=== PATIENT | female | born 1980 | race Caucasian/White ===

== ENCOUNTER 2016-07-12 20:13 | Emergency (ER) | payer BC ==
[~2016-07-12] VITALS: Ht 175.2 cm; Wt 99.8 kg
[~2016-07-12 20:13] MED LIST: AMOXICILLIN500 M2 PO; AMOXICILLIN500 MG PO; ANAPROX DS550 MG PO; AUGMENTIN 875 M1 TAB PO; BACTRIM DS 8001 TA1 PO; BENZONATATE100 M1 PO; CATAFLAM50 MG PO; CIPRO250 MG PO; CIPRODEX 0.3%-7.5 ML OT; CIPROFLOXACIN500 MG PO; CLARITIN10 MG PO; DIFLUCAN150 MG PO; FIORICET 325 MG1 TAB PO; HYDROCODONE BIT1 T11 PO; MOTRIN800 MG PO; Motrin,Rufen800 MG PO; NKHM; PREDNISONE20 M1 PO; ROBAXIN750 MG PO; TRAMADOL HCL50 MG PO; ULTRAM50 MG PO; VICO75300 PO; VICODIN 500 MG-1 TAB PO; VITAMINS; Zofran4 MG PO
[2016-07-12 20:18] VITALS: BP 160/116
[2016-07-12 21:01] LABS: BILIRUBIN NEGATIVE (NEGATIVE); BLOOD 2+ (NEGATIVE); CLARITY SL CLOUDY (CLEAR); COLOR YELLOW (YELLOW); GLUCOSE NEGATIVE (NEGATIVE); KETONE NEGATIVE (NEGATIVE); LEUKO ESTERASE NEGATIVE (NEGATIVE); NITRITE NEGATIVE (NEGATIVE); PROTEIN NEGATIVE (NEGATIVE); SPECIFIC GRAVITY 1.025 (1.005-1.030)
[2016-07-12 21:02] LABS: URINE REFLEX COMMENT YES (NO)
[2016-07-12 21:05] LABS: BASO # 0.1 10*3/uL (0.0-0.1); BASO % 0.5 % (0.0-1.0); EOS # 0.2 10*3/uL (0.0-0.4); EOS % 1.9 % (1.0-4.0); HEMOGLOBIN 13.4 g/dl (12.0-16.0); IG # 0.1 10*3/uL (0.0-0.1); LYMPH # 2.5 10*3/uL (1.3-4.4); MEAN CELL VOLUME 90.9 fl (81.0-99.0); MEAN CORPUSCULAR HGB 30.5 pg (27.0-31.0); MEAN CORPUSCULAR HGB CONC 33.5 g/dl (33.0-37.0); MEAN PLATELET VOLUME 10.7 fl (9.6-12.3); MONO # 0.7 10*3/uL (0.1-1.0); MONO % 5.5 % (3.0-9.0); NEUT # 8.8 10*3/uL (2.3-7.9); NEUT % 71.6 % (47.0-73.0); PLATELET COUNT AUTOMATED 268 10*3/uL (130-400); WHITE BLOOD COUNT 12.3 10*3/uL (4.8-10.8)
[2016-07-12 21:08] LABS: BACTERIA 1+
[2016-07-12 21:09] LABS: WBC 0-2 wbc/hpf (0-5)
[2016-07-12 21:20] LABS: ALBUMIN 3.7 gm/dl (3.1-4.5); ALKALINE PHOSPHATASE 81 U/L (45-117); BILIRUBIN, TOTAL 0.2 mg/dl (0.2-1.0); BUN 16 mg/dl (7-24); CARBON DIOXIDE 27 mmol/L (21-32); CHLORIDE 110 mmol/L (98-107); EST GLOM FILT AFRICAN AMERICAN > 60 ml/min; GLUCOSE 111 mg/dL (65-99); POTASSIUM 4.3 mmol/L (3.5-5.1); SGOT/AST 20 IU/L (3-35); SGPT/ALT 26 U/L (12-78); SODIUM 145 mmol/L (136-145); TOTAL PROTEIN 7.3 gm/dL (6.4-8.2)
[2016-07-12] MEDS ORDERED: HYDROCODONE BIT1 T11 PO (23:10)
[2016-07-12] MEDS ORDERED: Motrin,Rufen800 MG PO (23:10)
== END 2016-07-12 23:43 | disposition home or self-care (01) ==
LOC: ED 20:13
PROVIDERS: Physician Assistant
DX: R31.9 Hematuria, unspecified (principal); R10.30 Lower abdominal pain, unspecified; Z90.710 Acquired absence of both cervix and uterus; Z98.51 Tubal ligation status; Z98.890 Other specified postprocedural states; Z79.899 Other long term (current) drug therapy

== ENCOUNTER 2016-12-31 17:39 | Emergency (ER) | payer OTHER ==
[~2016-12-31] VITALS: Ht 175.2 cm; Wt 99.8 kg
[2016-12-31 17:48] VITALS: BP 134/77
[2016-12-31 18:09] LABS: BILIRUBIN NEGATIVE (NEGATIVE); BLOOD 2+ (NEGATIVE); CLARITY SL CLOUDY (CLEAR); COLOR YELLOW (YELLOW); GLUCOSE NEGATIVE (NEGATIVE); KETONE NEGATIVE (NEGATIVE); LEUKO ESTERASE 1+ (NEGATIVE); NITRITE NEGATIVE (NEGATIVE); PH 5.5 (5.0-9.0); SPECIFIC GRAVITY >= 1.030 (1.005-1.030); UROBILINOGEN 0.2 E.U./dl (0.2-1.0)
[2016-12-31 18:21] LABS: BACTERIA 1+
[2016-12-31 18:22] LABS: RBC 31-40 rbc/hpf (0-2)
[2016-12-31] MEDS ORDERED: MEDROL DOSEPAK4 MG PO (18:29)
[2016-12-31] MEDS ORDERED: ROBAXIN500 M1 PO (18:32)
== END 2016-12-31 18:38 | disposition home or self-care (01) ==
LOC: ED 17:39
PROVIDERS: Physician Assistant
DX: R31.9 Hematuria, unspecified (principal); M54.16 Radiculopathy, lumbar region; F17.200 Nicotine dependence, unspecified, uncomplicated; Z90.710 Acquired absence of both cervix and uterus; Z98.890 Other specified postprocedural states; Z98.51 Tubal ligation status

== ENCOUNTER → 2017-04-03 | Outpatient (CLI) | payer OTHER ==
[~2017-04-03] MED LIST changes: +MEDROL DOSEPAK4 MG PO; +ROBAXIN500 M1 PO
[2017-04-03 14:13] LABS: BASO # 0.1 10*3/uL (0.0-0.1); BASO % 0.5 % (0.0-1.0); EOS # 0.2 10*3/uL (0.0-0.4); EOS % 1.8 % (1.0-4.0); HEMATOCRIT 41.7 % (37.0-47.0); HEMOGLOBIN 14.1 g/dl (12.0-16.0); LYMPH # 2.4 10*3/uL (1.3-4.4); LYMPH % 24.6 % (27.0-41.0); MEAN CELL VOLUME 89.5 fl (81.0-99.0); MEAN CORPUSCULAR HGB 30.3 pg (27.0-31.0); MEAN CORPUSCULAR HGB CONC 33.8 g/dl (33.0-37.0); MEAN PLATELET VOLUME 10.2 fl (9.6-12.3); MONO # 0.6 10*3/uL (0.1-1.0); MONO % 6.3 % (3.0-9.0); NEUT # 6.6 10*3/uL (2.3-7.9); NEUT % 66.5 % (47.0-73.0); PLATELET COUNT AUTOMATED 292 10*3/uL (130-400); RED BLOOD COUNT 4.66 10*6/uL (4.10-5.10); RED CELL DISTRI WIDTH 13.2 % (0-14.5); WHITE BLOOD COUNT 9.9 10*3/uL (4.8-10.8)
[2017-04-03 14:29] LABS: ALBUMIN 3.8 gm/dl (3.1-4.5); ALKALINE PHOSPHATASE 73 U/L (45-117); BUN 16 mg/dl (7-24); CHLORIDE 107 mmol/L (98-107); CHOLESTEROL 174 mg/dL (<200); CREATININE 0.97 mg/dL (0.55-1.02); HDL CHOLESTEROL 37 mg/dl (40-60); LDL CHOLESTEROL 109 mg/dL (9-159); POTASSIUM 3.9 mmol/L (3.5-5.1); SGOT/AST 16 IU/L (3-35); SGPT/ALT 28 U/L (12-78); SODIUM 142 mmol/L (136-145); TOTAL PROTEIN 7.8 gm/dL (6.4-8.2); TRIGLYCERIDES 142 mg/dl (<150); VLDL CHOLESTEROL 28 mg/dL (6-40)
[2017-04-03 15:24] LABS: VITAMIN D, 25-HYDROXY 14.9 ng/mL (30-100)
== END | disposition home or self-care (01) ==
LOC: RESCLI 12:52 → LAB 12:52
PROVIDERS: Internal Medicine Hospice and Palliative Medicine
DX: Z00.01 Encounter for general adult medical examination with abnormal findings (principal); E66.09 Other obesity due to excess calories; B86 Scabies; E03.9 Hypothyroidism, unspecified; R79.89 Other specified abnormal findings of blood chemistry